=== PATIENT | male | born 1965 | race Caucasian/White ===

== ENCOUNTER → 2024-02-16 15:56 | Outpatient (REF) | payer OTHER, SELFPAY | LOC: RAD 15:56 | PROVIDERS: ATTENDING PHYSICIAN Physician Assistant; FAMILY PHYSICIAN Family Medicine | DX: E10.65 Type 1 diabetes mellitus with hyperglycemia (principal) | CPT/HCPCS: 74170; Q9967 ==

== ENCOUNTER 2025-01-05 19:01 | Emergency (ER) | payer OTHER, SELFPAY ==
[2025-01-05 19:03] VITALS: BP 141/83
[2025-01-05 19:44] LABS: Hematocrit 36.3 % (39.0-52.0); Hemoglobin 12.9 g/dL (13.0-18.0); Mean Corp Hgb Conc. 35.5 g/dL (33.0-37.0); Mean Corpuscular Volume 89.4 fL (80.0-94.0); Nucleated Red Blood Cells % 0 % (-); Platelet Count 183 10^3/uL (130-400); Red Cell Dist. Width 12.3 % (11.5-14.5)
[2025-01-05 19:58] LABS: ALT (SGPT) 18 U/L (0-50); AST (SGOT) 26 U/L (17-59); Albumin 4.0 g/dl (3.5-5.0); Alkaline Phosphatase 101 U/L (38-126); Blood Urea Nitrogen 16 mg/dl (9-20); Calcium 9.3 mg/dl (8.4-10.2); Carbon Dioxide 22 mmol/L (22-30); Chloride 107 mmol/L (98-107); Glucose 192 mg/dl (70-99); Lipase 67 U/L (23-300); Potassium 4.5 mmol/L (3.5-5.1); Sodium 136 mmol/L (135-145); Total Protein 6.9 g/dl (6.3-8.2); eGFR 58.26
[2025-01-05] MEDS: ZOFRAN 4 MG IV ×2 (21:23→22:23)
[2025-01-05] MEDS: NSS 1000 IV (21:26)
[2025-01-05] MEDS: LR 1000 IV (22:22)
--- NOTE | 2025-01-05 22:23 | ED.GENMED ---
History of Present Illness
General
Chief Complaint: Abdominal Symptoms
Source: patient and spouse
Time Seen by Provider: 01/05/25 21:42
History of Present Illness
History of Present Illness:
59-year-old male with past medical history of GERD, diabetes, Cartwright's esophagus presenting to the ER for persistent nausea and vomiting throughout the day today, patient believes that it could have been from a bad [place], no other sick contacts
however. History of similar but never this severe. No fevers, chills, rigors, minimal pain associated, no bowel changes or urinary symptoms. Did not take anything for symptoms prior to arrival. Secondary concern of lower blood sugars throughout
the day today, glucose here is actually more elevated at 192.
Past History
Past History
ED Past Medical History: GERD, HTN, Hypercholesterolemia and IDDM
ED Past Surgical History: Cholecystectomy and Orthopedic
Social History
Tobacco: Non-smoker
Alcohol: Occasional
Drug: None
Personal:
Living: with family
Employment: Employed
Family History
Family History: Other
Review of Systems
Review of Systems
All Other Systems: ROS reviewed and negative except as documented in HPI and ROS
Phy Exam
Physical Exam
Physical Exam:
GENERAL: Alert , in no apparent distress, retching, Appears uncomfortable
EYE: clear conjunctiva b/l
HEAD: NCAT
ENT: o/p clr, mmm.
CARDIAC: Regular rate and rhythm .
LUNGS: Clear breath sounds bilaterally, no acute respiratory distress, no wheezes/rales/rhonchi
ABDOMEN: Soft, without focal tenderness, no r/g, no cvat
NEUROLOGICAL: Alert and oriented
SKIN: Warm and dry, skin intact.
MUSCULOSKELETAL: well perfused.
PSYCH: Normal and appropriate interaction.
Scores
Heart Failure Risk
Heart Failure Risk Score: Not Applicable
Heart Score for Chest Pain Patients
STEMI patient?: Not applicable
Withdrawal Assessment of Alcohol
Withdrawal Assessment Completed?: Not applicable
Course
Orders/Labs/Results
Orders:
Orders
01/05/25 19:36
Complete Blood Count/With Diff Urgent
Comprehensive Metabolic Panel Urgent
Lipase Urgent
01/05/25 21:21
Ondansetron Injectable [Zofran] 4 mg .ROUTE .STK-MED ONE
01/05/25 21:22
Ondansetron Injectable [Zofran] 4 mg IV NOW STA
01/05/25 21:26
0.9% Sodium Chloride 1000 ml [Nss] 1,000 ml IV BOLUS
01/05/25 22:17
Diphenhydramine [Benadryl] 25 mg IV NOW STA
Ondansetron Injectable [Zofran] 4 mg IV NOW STA
01/05/25 22:18
Lactated Ringers [Lr] 1,000 ml IV BOLUS
Abnormal Lab Results
01/05/25
19:36
RBC 4.06 L 10^6/uL
(4.70-6.10)
Hgb 12.9 L g/dL
(13.0-18.0)
Hct 36.3 L %
(39.0-52.0)
MCH 31.8 H pg
(27.0-31.0)
Absolute Lymphs (auto) 0.7 L 10^3/uL
(1.2-3.4)
Neutrophils % 84.9 H %
(42.2-75.2)
Lymphocytes % 10.1 L %
(20.5-51.1)
Creatinine 1.4 H mg/dL
(0.7-1.3)
Glucose 192 H mg/dl
(70-99)
01/05/25 19:36
01/05/25 19:36
Vital Signs
Initial and Last Documented VS:
Initial Vital Signs
Temp Pulse Resp BP Pulse Ox
97.6 F 104 18 141/83 100
01/05/25 19:03 01/05/25 19:03 01/05/25 19:03 01/05/25 19:03 01/05/25 19:03
Last Documented Vital Signs
Temp Pulse Resp BP Pulse Ox
97.6 F 98 18 173/96 100
01/05/25 19:03 01/05/25 22:25 01/05/25 22:25 01/05/25 23:30 01/05/25 22:26
MDM/Problems Addressed
Differential Diagnosis Includes:
Gastroenteritis
GERD
Gastritis
Dehydration
DKA/HHNK
Electrolyte imbalance
Medication side effects
MDM/Problems Addressed:
59-year-old male presenting to the ER for evaluation of persistent nausea and vomiting throughout the day today, difficult time tolerating p.o. at home. Patient actively retching here, was treated with 4 mg Zofran and fluids were initiated on
arrival but patient still with symptoms. Will treat with additional Zofran and lactated ringer. Patient declines marijuana use so doubt cannabinoid hyperemesis. Disposition pending
*Pulse Oximetry
SaO2: 100
Oxygen Mode of Delivery: Room air
Patient hypoxic: no
*Critical Care Note
Total Time (30-74mins, 75-104mins- exclusive of procedures): Not Applicable
Patient Management
Escalation/DeEscalation of care consider admission/obs:
Patient reports significant relief of symptoms and would like to be discharged home. Discussed return precautions to the ER, BRAT diet, stable for discharge home otherwise
ED Attending Note
-
Portions of this chart may have been created with voice recognition software.� Occasional wrong word or��sound alike� substitutions may have occurred due to the inherent limitations of voice recognition software.
Discharge Plan
Departure
Patient Disposition: Home (Routine Discharge)
Date of Disposition: 01/05/25
Time of Disposition: 23:35
Patient with high blood pressure during this ER visit?: Yes
Discharge Problem:
Nausea and vomiting
Instructions: Nausea and Vomiting, Adult (DC)
Prescriptions:
New
ondansetron 4 mg tablet,disintegrating
4 mg PO TIDPRN PRN (Reason: nausea/vomiting) Qty: 10 0RF
No Action
famotidine 20 MG tablet
20 mg PO HS
albuterol sulfate 1 PUFF HFA aerosol inhaler
2 puff inhalation R Q4HPRN PRN (Reason: sob)
fluticasone furoate-vilanterol [Breo Ellipta] 1 EACH blister with device
1 puff IH R DAILYPRN PRN (Reason: sob)
fluticasone furoate [Arnuity Ellipta] 100 MCG blister with device
1 puff IH R DAILYPRN PRN (Reason: sob)
pantoprazole 40 MG tablet,delayed release (DR/EC)
40 mg PO DAILY
allopurinol 300 MG tablet
300 mg PO DAILY
insulin lispro [Humalog KwikPen Insulin] 100 UNIT/ML insulin pen
0 units SC .SLIDING SCALE PRN
insulin glargine [Lantus Solostar U-100 Insulin] 300 UNITS/3 ML insulin pen
10 units SC HS Qty: 0 0RF
Patient Comments:
02/29/2020-spouse said patient may be useing less at time, patient has not been feeling well to eat. patient is still throwing up and not well enough to go over medicaition called spouse and she read all medication and lnsulin pens to me over
phone.
Referrals:
Corona Salcedo MD [Family Provider, Family Practice]
Interventions
Interventions:
*Risk Screen - Suicide Last Done: 01/05/25 19:10
*General Assessment Last Done: 01/05/25 19:10
*Neglect/Abuse Screening Last Done: 01/05/25 19:10
*ED- Fall Risk Assessment Last Done: 01/05/25 19:10
*ED COVID-19 Vaccine History Last Done: 01/05/25 19:10
*ED Influenza Vaccine History Last Done: 01/05/25 19:10
*Nursing Disposition Last Done: 01/05/25 23:43
CF-Gtmsxz-Eiytccqqtp Assessment Last Done: 01/05/25 21:31
Discharge Date and Time
Discharge Date/Time: 01/05/25 23:43
Print Language: FRENCH
[2025-01-05] MEDS: BENADRYL 25 MG IV (22:24)
[2025-01-05 23:30] VITALS: BP 173/96
== END 2025-01-05 23:43 | disposition home or self-care (01) ==
LOC: EMR 19:01
PROVIDERS: Emergency Medicine; EMERGENCY PHYSICIAN Student in an Organized Health Care Education/Training Program; FAMILY PHYSICIAN Family Medicine
DX: R11.2 Nausea with vomiting, unspecified (principal); E11.9 Type 2 diabetes mellitus without complications; E78.00 Pure hypercholesterolemia, unspecified; I10 Essential (primary) hypertension; Z90.49 Acquired absence of other specified parts of digestive tract; Z87.19 Personal history of other diseases of the digestive system
CPT/HCPCS: 96374; 96375; 96376; 96361; 99284; 80053; 83690; 85025